=== PATIENT | female | born 1995 | race Caucasian/White ===

== ENCOUNTER → 2016-07-26 | Outpatient (CLI) | payer MEDICAID ==
--- NOTE | 2016-07-26 12:40 | RADRPT ---
PROCEDURE: US OB. CLINICAL INDICATION: Size and dates TECHNIQUE: Transabdominal views of the pelvis are available for review. COMPARISON: No prior studies are available for comparison. FINDINGS: There is a single intrauterine gestation with the crown-rump length measuring 2.1 cm, corresponding to a gestational age of 8 weeks and 5 days. The gestational sac measures 3 cm, corresponding to 8 weeks and 0 days. The heart rate is noted at 173 bpm. The ovaries are normal in size and echogenicity. Normal Doppler flow is identified in both ovaries. The right ovary measures 3.1 x 1.8 x 1.7 cm. The left ovary measures 2.0 x 1.4 x 1.3 cm. There is no free fluid. RPTAT: AA IMPRESSION: Single live intrauterine with an estimated gestational age of 8 weeks and 3 days, based on ultrasound measurements. RHONDA based on ultrasound measurements is 03/04/17. .Filiberto Gold MD, MD Date Time Electronically viewed and signed by .Filiberto Gold MD, on 07/26/2016 12:40 .S/
== END | disposition home or self-care (01) ==
LOC: U/S 10:00
PROVIDERS: ATTEND Obstetrics & Gynecology
DX: O26.841 Uterine size-date discrepancy, first trimester (principal); Z3A.08 8 weeks gestation of pregnancy
CPT/HCPCS: 76801